=== PATIENT | male | born 1975 | race Caucasian/White ===

== ENCOUNTER 2018-09-17 01:35 | Inpatient (IN) | payer MEDICAID ==
[~2018-09-17] VITALS: Ht 180.3 cm; Wt 111.3 kg
--- NOTE | 2018-09-17 01:50 | NUR ---
TO BED 2 AMBULATORY C/O INTERMITTENT L SIDED CP WITH SOB RADIATING TO L ARM X3HR DATA PROCESSING CONTROL CLERK. PT AAOX4 NO ACUTE DISTRESS, RESP EVEN AND UNLABORED. SKIN WARM, NONDIAPHORETIC. PLACE PT ON CARDIAC MONITORING, CONTINUIOUS POX. ER MD AT BEDSIDE TO EVAL PT WITH ORDERS RECEIVED.
[2018-09-17 02:32] LABS: BASOPHILS % (AUTO) 0.3 % (0.0-2.0); HEMATOCRIT 41 % (39-51); HEMOGLOBIN 13.9 g/dL (13.5-17.5); LYMPHOCYTES # (AUTO) 2.6 /CMM (0.8-4.8); LYMPHOCYTES % (AUTO) 31.2 % (20.0-44.0); MEAN CORPUSCULAR HGB CONC 34 g/dl (31.0-36.0); MEAN CORPUSCULAR VOLUME 84 fL (80-96); MONOCYTES # (AUTO) 0.9 /CMM (0.1-1.30); MONOCYTES % (AUTO) 10.7 % (2.0-12.0); NEUTROPHILS # (AUTO) 4.4 /CMM (1.8-8.9); NEUTROPHILS % (AUTO) 53.8 % (43.0-81.0); PLATELET COUNT (AUTO) 202 /CMM (150-450); RED BLOOD CELL COUNT(AUTO) 4.83 MIL/uL (4.5-6.0); WHITE BLOOD COUNT (AUTO) 8.2 K/uL (4.3-11.0)
[2018-09-17 02:34] LABS: CALCIUM, SERUM 8.6 mg/dL (8.5-10.1); CREATININE 0.7 mg/dL (0.6-1.3); POTASSIUM 3.7 mmol/L (3.5-5.1)
[2018-09-17] MEDS ORDERED: ASPIRIN 81 MG TAB.CHEW PO ONE (03:00)
[2018-09-17] MEDS ORDERED: ASPIRIN 81 MG TAB.CHEW ONE (03:13)
[2018-09-17] MEDS ORDERED: DOCUSATE SODIUM 100 MG CAPSULE PO PRN (03:30)
[2018-09-17] MEDS ORDERED: ONDANSETRON HCL/PF 4 MG/2 ML VIAL IVP PRN (03:30)
[2018-09-17] MEDS ORDERED: MORPHINE SULFATE INJ 2 MG/ML DISP.SYRIN IV PRN (03:30)
[2018-09-17] MEDS ORDERED: IV NS 0.9% 500 ML IV PRN ×2 (03:30→17:00)
[2018-09-17] MEDS ORDERED: ACETAMINOPHEN 325 MG TABLET PO PRN (03:30)
[2018-09-17] MEDS ORDERED: NITROGLYCERIN 0.4 MG/TAB BOTTLE SL PRN (03:30)
[2018-09-17] MEDS ORDERED: MAG HYDROX/AL HYDROX/SIMETH 30 ML UDC PO PRN (03:30)
--- NOTE | 2018-09-17 03:43 | NUR ---
PT TRANSFERED TO 3 VIA ZEE SALCIDO PROTOCOL.
--- NOTE | 2018-09-17 03:45 | NUR ---
terrazzo layer notes Received Pt from ER nurse DEWEY Heard. Pt arrived at the unit at 0345 via gurney. Pt's Chief complaint: Chest pain that radiates to the left arm. Pt is alert and oriented X4. Pt gait is steady. Pt is complaining of chest pain 4/10 on pain scale but refused medications. Pt stated Pt just want to sleep. Vital signs as follows: BP 120/94, P 79, RESP 18, TEMP 97.5, O2 SAT 97% on room air. Pt is on electronic device monitor-SR 77 BPM. Respiration is equal and unlabored. NO SOB. IV sites on RFA # 20 G is intact, patent and SL. Skin assessment done and performed and picture taken and placed in Pt's chart. Pt stated he does not take any medication at home. BLE offloaded on pillows. Belonging was checked by HONORIO Palacio. Safety precautions is maintained. Will continue to monitor.
[2018-09-17 04:00] VITALS: BP 120/94
[2018-09-17 04:13] LABS: THYROID STIMULATING HORMONE 4.396 uIU/mL (0.358-3.74)
--- NOTE | 2018-09-17 05:00 | NUR ---
mechanical engineering director notes Pt is resting in bed comfortably with eyes closed. Awaken easily. Pt denies any pain or discomfort at this time. Bed at low position, bed locked, side rails up X2, and call light is within reach. Will continue to monitor.
[2018-09-17] MEDS: NORMAL SALINE FLUSH 10 ML SYR IV SCH ×3 (05:47→21:23)
--- NOTE | 2018-09-17 06:43 | NUR ---
indoor sports centre manager closing notes Pt is resting in bed comfortably with eyes closed. Awaken easily. Respiration is normal. No SOB. No S/S of distress noted. No pain or any discomfort at this time. No nausea or vomiting. IV sites on RFA is intact, patent and SL. VS is stable. Pt is on telemetry monitor-SR 80 bpm. All needs met. Safety precautions is maintained. Bed at low position, bed locked, side rails upX2 and call light is within reach. Will endorse to morning nurse for BOAZ.
--- NOTE | 2018-09-17 07:30 | NUR ---
TELE/RN OPENING NOTE THE PATIENT IS RECEIVED IN BED. ALERT AND ORIENTED X4. IN ROOM AIR AND DENIES DENIES SOB. DENIES PAIN/DISCOMFORT AT THIS TIME. RFA G 20 PATENT AND SALINE LOCKED. BED LOW AND LOCKED. SIDE RAILS UP X3. CALL LIGHT WITHIN REACH. WILL CONTINUE TO MONITOR.
[2018-09-17 08:00] VITALS: BP 145/91
[2018-09-17] MEDS: ATORVASTATIN 40 MG TABLET PO SCH (09:00)
[2018-09-17] MEDS ORDERED: ENOXAPARIN SODIUM 40 MG/0.4 ML DISP.SYRIN SQ SCH (09:00)
[2018-09-17] MEDS: ASPIRIN 81 MG TAB.CHEW PO SCH (09:00)
[2018-09-17] MEDS: METOPROLOL TARTRATE 50 MG TABLET PO SCH ×3 (09:00→21:25)
[2018-09-17] MEDS ORDERED: PANTOPRAZOLE 40 MG TABLET.DR PO SCH (09:00)
[2018-09-17] MEDS ORDERED: IV NS 0.9% 250 ML IV ONE (15:56)
[2018-09-17] MEDS ORDERED: IOHEXOL-350 100 ML VIAL IV ONE (15:56)
[2018-09-17] MEDS ORDERED: CT SWABBABLE VALVE TRANS SET 1 EA INFUS.SET MC ONE (15:56)
[2018-09-17 16:00] VITALS: BP 141/91
[2018-09-17] MEDS ORDERED: NITROGLYCERIN 0.4 MG/TAB BOTTLE SL ONE (17:00)
[2018-09-17] MEDS ORDERED: METOPROLOL TARTRATE INJ 5 MG/5 ML AMPUL IVP ONE (17:00)
[2018-09-17] MEDS ORDERED: METOPROLOL TARTRATE INJ 5 MG/5 ML AMPUL ONE ×3 (17:04→17:22)
[2018-09-17] MEDS ORDERED: NITROGLYCERIN 0.4 MG/TAB BOTTLE ONE (17:14)
--- NOTE | 2018-09-17 18:00 | NUR ---
ICU/RN: S/P CTA Pt tolerated procedure well, total of Metoprolol 50 mg IVP and Nitro SL x1 administered per protocol. Post-CTA VS 133/83, HR 69 NSR with T-wave inversion noted on monitor. Pt glasses and tele box returned. Report given to primary RN for BOAZ.
--- NOTE | 2018-09-17 18:05 | NUR ---
TELE/RN NOTE THE PATIENT IS BACK FROM CTA. ALERT AND ORIENTED X4. RECEIVING OXYGEN AT 2L/MIN VIA NASAL CANNULA AND SATURATION IS AT 98%. DENIES SOB. RESPIRATION REGULAR AND UNLABORED. DENIES PAIN OR ANY DISCOMFORT. BED LOW AND LOCKED. SIDE RAILS UP X2. CALL LIGHT WITHIN REACH. WILL CONTINUE TO MONITOR.
--- NOTE | 2018-09-17 19:10 | NUR ---
RESIDENT PROGRAMS ASSISTANT NOTES RECEIVED PT IN BED AWAKE AND ABLE TO MAKE NEEDS KNOWN. PT A/O X4. RESPIRATIONS EVEN AND UNLABORED WITH NO S/S OF ACUTE DISTRESS OR SOB NOTED. PT ON 2L O2 VIA NC TOLERATING WELL. PT WITH LEFT AC #18G PATENT AND INTACT. PT DENIES PAIN AT THIS TIME. SAFETY MEASURES IN PLACE WITH BED IN LOWEST LOCKED POSITION WITH SIDE RAILS UP X2. CALL LIGHT WITHIN REACH. WILL CONTINUE TO MONITOR.
[2018-09-17 20:00] VITALS: BP 144/95
[2018-09-17] MEDS ORDERED: SIMVASTATIN 20 MG TABLET PO SCH (22:00)
[2018-09-17] MEDS ORDERED: diphenhydrAMINE HCL ELIX 25 MG/10 ML UDC PO PRN (22:30)
--- NOTE | 2018-09-17 22:30 | NUR ---
MS RN NOTES PT DOWNGRADED FROM TELE TO MS.
[2018-09-18] VITALS: BP 143/79
[2018-09-18 03:23] LABS: BASOPHILS # (AUTO) 0.1 /CMM (0.0-0.2); BASOPHILS % (AUTO) 0.6 % (0.0-2.0); EOSINOPHILS % (AUTO) 2.6 % (0.0-6.0); HEMATOCRIT 42 % (39-51); HEMOGLOBIN 14.2 g/dL (13.5-17.5); LYMPHOCYTES # (AUTO) 2.6 /CMM (0.8-4.8); LYMPHOCYTES % (AUTO) 25.5 % (20.0-44.0); MEAN CORPUSCULAR HGB CONC 34 g/dl (31.0-36.0); MEAN CORPUSCULAR VOLUME 84 fL (80-96); MONOCYTES # (AUTO) 0.9 /CMM (0.1-1.30); MONOCYTES % (AUTO) 9.1 % (2.0-12.0); NEUTROPHILS # (AUTO) 6.3 /CMM (1.8-8.9); NEUTROPHILS % (AUTO) 62.2 % (43.0-81.0); PLATELET COUNT (AUTO) 227 /CMM (150-450); RED BLOOD CELL COUNT(AUTO) 4.94 MIL/uL (4.5-6.0); WHITE BLOOD COUNT (AUTO) 10.2 K/uL (4.3-11.0)
[2018-09-18 03:36] LABS: CALCIUM, SERUM 8.4 mg/dL (8.5-10.1); CREATININE 0.7 mg/dL (0.6-1.3); PHOSPHORUS 4.3 mg/dL (2.5-4.9)
[2018-09-18 04:00] VITALS: BP 141/86
[2018-09-18] MEDS: NORMAL SALINE FLUSH 10 ML SYR IV SCH (05:10)
--- NOTE | 2018-09-18 07:07 | NUR ---
TOOL HARDENER NOTES PT IN BED ASLEEP BUT EASILY AWOKEN VERBALLY OR BY TOUCH. PT A/O X3 AND ABLE TO MAKE NEEDS KNOWN. RESPIRATIONS EVEN AND UNLABORED WITH NO S/S OF ACUTE DISTRESS OR SOB NOTED THROUGHOUT SHIFT. PT ON 2L O2 VIA NC TOLERATING WELL. PT WITH LEFT AC #18G PATENT AND INTACT. PT DENIES PAIN AT THIS TIME. SAFETY MEASURES IN PLACE WITH BED IN LOWEST LOCKED POSITION WITH SIDE RAILS UP X2. CALL LIGHT WITHIN REACH. WILL ENDORSE TO ONCOMING NURSE FOR BOAZ.
--- NOTE | 2018-09-18 07:20 | NUR ---
MS/RN OPENING NOTE THE PATIENT IS RECEIVED IN BED. PATIENT IS ALERT AND ORIENTED X4. IN ROOM AIR AND DENIES SOB. RESPIRATION REGULAR AND UNLABORED. DENIES PAIN. LAC G 18 PATENT AND SALINE LOCKED. BED LOW AND LOCKED. SIDE RAILS UP X2. CALL LIGHT WITHIN REACH. WILL CONTINUE TO MONITOR.
[2018-09-18 08:00] VITALS: BP 144/87
[2018-09-18] MEDS: ATORVASTATIN 40 MG TABLET PO SCH (08:23)
[2018-09-18] MEDS: ASPIRIN 81 MG TAB.CHEW PO SCH (08:23)
--- NOTE | 2018-09-18 09:24 | NUR ---
MS/RN CLOSING NOTE THE PATIENT IS ALERT AND ORIENTED X4. IN ROOM AIR AND SATURATION IS AT 98%. DENIES SOB. RESPIRATION REGULAR AND UNLABORED. DENIES PAIN. PATIENT UN STABLE CONDITION. IN NO APPARENT DISTRESS. DISCHARGE EDUCATION PROVIDED AND HE VERBALIZED UNDERSTANDING. THE PATIENT IS HANDED PRESCRIPTION AND COPY IS SAVED IN THE CHART. THE PATIENT REFUSED DISCHARGE SKIN ASSESSMENT DESPITE EXPLAINING RISKS AND BENEFITS MULTIPLE TIMES. PER PATIENT " MY SKIN IS GOOD, I DON`T HAVE PROBLEM, PLUS THEY CHECKED IT YESTERDAY". PATIENT LEFT THE HOSPITAL IN STABLE CONDITION. FATHER PICKED HIM UP VIA PRIVATE CAR.
[2018-09-18 09:27] VITALS: BP 144/87
== END 2018-09-18 12:07 | disposition home or self-care (01) | DRG 206 ==
LOC: ER 01:35 → TELE 03:23 → MED 22:18
PROVIDERS: ADMIT Internal Medicine; ATTEND Internal Medicine
DX: M94.0 Chondrocostal junction syndrome [Tietze] (principal); G89.29 Other chronic pain; I10 Essential (primary) hypertension; E78.5 Hyperlipidemia, unspecified; G47.33 Obstructive sleep apnea (adult) (pediatric); E66.9 Obesity, unspecified; Z68.34 Body mass index [BMI] 34.0-34.9, adult; Z79.82 Long term (current) use of aspirin; Z82.49 Family history of ischemic heart disease and other diseases of the circulatory system; E03.9 Hypothyroidism, unspecified
CPT/HCPCS: 36415; 71045-TC; 75574; 80048-TC; 80061-TC; 83735-TC; 84100-TC; 84439-TC; 84443-TC; 84481; 84484-TC; 85025-TC; 87081-TC; 93307-TC; 94799-TC; A4216; G0378; J1650; J3490; J7050; Q0163; Q9967